=== PATIENT | female | born 1950 | race Caucasian/White ===

== ENCOUNTER → 2016-09-06 | Outpatient (CLI) | payer OTHER ==
[~2016-09-06] MED LIST: 24 HOUR ALLER15.8 ML; ACETAMINOPHEN PO; ALBUTEROL; ALBUTEROL MININEB NEB; ALLEGRA-D1 TAB.SR1 PO; AMITIZA8 MCG; ASPIRIN PO; ASPIRIN81 MG; AXERT12.5 MG PO; BENICAR; BENTYL20 M1 PO; BENZONATATE; BENZONATATE PO; CELEXA PO; CLEOCIN HCL300 M1 PO; CYMBALTA; DSS100 MG PO; DYAZIDE 37.5/251 CAP PO; ENDOCET 5-3251 EACH PO; ESTRADIOL0.5 MG; ESTROVEN MAX200 MCG PO; EXCEDRIN MIGRA1 EACH PO; EXCEDRIN MIGRAI1 TA1 PO; FISH OIL 1,2001 CAP PO; FLONASE 0.05% N16 G1; HCTZ; HYDROCHLOROT PO; IBUPROFEN PO; KCL PO; KRILL OIL 1,001 EAC1 PO; LANSOPRAZOLE PO; LANSOPRAZOLE15 MG; LANSOPRAZOLE30 M1 PO; LEVAQUIN PO; LIPITOR20 MG PO; LISINOPRIL PO; LOPID600 MG PO; LOSARTAN POTASS50 MG PO; LOSARTAN-HCTZ1 EAC3 PO; MACROBID100 M1 PO; MACRODANTIN PO; MELOXICAM PO; MOBIC; MOBIC15 MG PO; MONTELUKAST PO; MORPHINE; MORPHINE PUMP; NITROSTAT SL; NORCO1 TAB 10/3 PO; NORFLEX100 MG PO; NORVASC10 MG PO; OMEGA 3 KRILL OIL PO; OMEGA-3100 MG; OMEPRAZOLE40 M1 PO; PAIN PUMP; PERCOCET; PERCOCET PO; POTASSIUM CHLO10 MEQ; POTASSIUM CHLO10 MEQ DOB; POTASSIUM CHLO10 MEQ PO; POTASSIUM CL PO; PREMPRO 0.45/1.1 TAB PO; PREVACID30 MG/BOTT PO; PRILOSEC PO; PROAIR HFA8.5 GM IH; PROTONIX PO; SINGULAIR; SINGULAIR PO; SYMBICORT; SYMBICORT INH; TOPAMAX; TOPAMAX PO; TOPIRAMATE PO; TOPROL XL PO; TRAZODONE HCL100 MG PO; TRICOR PO; TRILIPIX PO; TRIMPEX100 MG; UROXATRAL10 MG PO; VITAMIN D PO; VITAMIN D400 UNI2; VITAMIN D5000 UNIT PO; WELLBUTRIN PO; ZOFRAN ODT4 MG DOB; ZOFRAN PO; ZYRTEC PO; ZYRTEC10 M2 PO; [UNRECOGNIZED DRUG - OTHER]
--- NOTE | ~2016-09-06 | US139 ---
[facility] A Service [facility] RADIOLOGY TEXT RESULTS PATIENT: MERCEDES BALLARD LOCATION: SNIV : 48 UNIT #: [id number] AGE: [address]: Sara Boothe SEX: F ORDER DR: [id number] [place] [id number] O MR#: [id number] #: [id number] NAME: MERCEDES BALLARD : 1950 SEX: F STUDY DATE/TIME: 09/06/2016 16:00 UNIT: SNIV ROOM: STUDY DESCRIPTION: US UE Veins Complete Dayo Stdy Attending Physician: Sara Boothe A.P.R.N. Referring Physician: Sara Boothe A.P.R.N. Ordering Physician: Sara Boothe A.P.R.N. Primary Care Physician: Sara Boothe A.P.R.N. MEDICAL IMAGING REPORT This report is preliminary unless electronic signature is present. EXAM Bilateral lower extremity venous duplex. DATE OF EXAM 09/06/2016 HISTORY Bilateral lower extremity pain and cramping for 3 months. Evaluate for deep vein thrombosis. TECHNIQUE Venous ultrasound examination of both lower extremities was performed using grayscale, spectral Doppler and color flow Doppler imaging. FINDINGS The examination is negative. There is no evidence of deep venous thrombus from the groin to the lower calf bilaterally. Visualized greater saphenous veins are also patent. IMPRESSION Negative examination. No evidence of lower extremity DVT. Dictated by... Elton Mustafa M.D. THIS IS AN ELECTRONICALLY VERIFIED REPORT Elton Mustafa M.D. at 09/09/2016 10:36 AM KRT/michel [facility] A Service [facility] RADIOLOGY TEXT RESULTS PATIENT: MERCEDES BALLARD LOCATION: SNIV : 48 UNIT #: [id number] AGE: [address]: [place],Sara K CERTIFIED APPLIANCE SERVICE TECHNICIAN SEX: F ORDER DR: TD: 09/07/2016 00:31 JOB #: [id number] MEDICAL IMAGING REPORT
== END | disposition home or self-care (01) ==
LOC: SNIV 15:52
DX: M79.604 Pain in right leg (principal); M79.605 Pain in left leg
CPT/HCPCS: 93970